=== PATIENT | male | born 1955 | race Caucasian/White ===

== ENCOUNTER 2016-10-03 12:51 | Inpatient (IN) | payer BC ==
[2016-10-03] MEDS ORDERED: NS 0.9% 1000 ML* 1,000 ML IV SCH ×2 (13:45→15:30)
[2016-10-03 14:11] LABS: Hematocrit 25 % (42-52); Hemoglobin 9.3 g/dl (14.0-18.0); Mean Corpuscular HGB Conc 37 g/dl (31-36); Mean Corpuscular Hemoglobin 40 pg (27-31); Mean Corpuscular Volume 109 fL (80-94); Red Blood Count 2.33 10^6/ul (4.0-5.4); Red Cell Distribution Width 15 % (10.5-15); White Blood Count 11.5 10^3/ul (3.5-10.8)
[2016-10-03 14:16] LABS: ALT 29 U/L (7-52); AST 68 U/L (13-39); Albumin 1.8 g/dL (3.2-5.2); Alkaline Phosphatase 128 U/L (34-104); BUN/Creatinine Ratio 20.5 (8-20); Blood Urea Nitrogen 23 mg/dL (6-24); C Reactive Protein 19.84 mg/L (< 5.00); CO2 Carbon Dioxide 26 mmol/L (22-32); Calcium 7.7 mg/dL (8.6-10.3); Chloride 87 mmol/L (101-111); Creatine Kinase 188 U/L (10-223); EGFR African American 85.7 (>60); EGFR Non-African American 66.7 (>60); Glucose 98 mg/dL (70-100); Lipase 46 U/L (11.0-82.0); Sodium 121 mmol/L (133-145); Total Protein 5.8 g/dL (6.4-8.9)
[2016-10-03 14:17] LABS: Troponin I 0.02 ng/mL (<0.04)
[2016-10-03 14:19] LABS: B Type Natriuretic Peptide 238 pg/mL
--- NOTE | 2016-10-03 14:22 | RAD ---
INDICATION: Weakness COMPARISON: July 31, 2012 TECHNIQUE: An AP portable view obtained at 1408 hours is submitted. FINDINGS: Bones/Soft Tissues: There are no acute bony findings. Cardiomediastinal: The cardiomediastinal silhouette is normal. Lungs: There is an infiltrate in the left lung base. The remaining lung fox are clear. Pleura: There are no pleural effusions. Other: None IMPRESSION: LEFT BASILAR INFILTRATE. SUGGEST FOLLOW-UP.
--- NOTE | 2016-10-03 14:25 | RAD ---
INDICATION: Right hip pain COMPARISON: April 12, 2005 TECHNIQUE: An AP view of the pelvis and AP views of the hip in neutral and abducted position were obtained FINDINGS: Bones: There are no acute bony findings. Joint spaces: There is mild to moderate osteoarthritis but the left hip. There is right hip arthroplasty. Both femoral and acetabular components appear well seated. SI joints/symphysis: The SI joints and symphysis are intact. Other: None IMPRESSION: RIGHT HIP ARTHROPLASTY. NO EVIDENCE OF HARDWARE FAILURE.
[2016-10-03 14:26] LABS: Add Diff/Slide Review? Slide Review Added; Comments Flag Yes
[2016-10-03 14:31] LABS: Magnesium 2.2 mg/dL (1.9-2.7)
[2016-10-03 14:50] LABS: Acetaminophen < 15 mcg/mL
[2016-10-03 14:56] LABS: Urine Bacteria Absent (Absent)
[2016-10-03] MEDS ORDERED: Azithromycin IV(*) 500 MG in NS 0.9% 250 ML* 250 ML IVPB ONE (15:38)
--- NOTE | 2016-10-03 17:01 | ED ---
Bg Bell SooYoung, scribed for Vaibhav Sahu MD on 10/03/16 at 1336 . Complex/Multi-Sys Presentation - HPI Summary HPI Summary: A 60 y/o M presents to ED with c/o weakness onset last night. Pt had a fall from standing last night and hurt his R hip. He was unable to get up this AM. He has not been eating or drinking much lately. Associated sx: dehydration. Denies LE pain. Took one tylenol with codeine this AM at 0530. He did not take his Lactulose today, but did take it yesterday. Pert PMHx: cirrhosis, total R hip replacement. Pt was scheduled for blood work this AM, but was unable to do. Sees Tiki Rhoades. - History Of Current Complaint Chief Complaint: EDGeneral Time Seen by Provider: 10/03/16 13:28 Hx Obtained From: Patient, Family/[employer] Onset/Duration: Still Present Timing: Constant Associated Signs And Symptoms: Positive: Weakness, Other - pos: dehydration, R hip pain - Allergies/Home Medications Allergies/Adverse Reactions: Allergies Allergy/AdvReac Type Severity Reaction Status Date / Time No Known Allergies Allergy Verified 06/06/14 09:21 Home Medications: Home Medications Acetaminop/Codeine 30 MG TAB* [Tylenol/Codeine 30 MG TAB*] 1 tab PO Q8H PRN [History Confirmed 10/03/16] Folic Acid TAB* [Folvite TAB*] 1 mg PO DAILY 10/03/16 [History Confirmed ] Furosemide TAB* [Lasix TAB*] 40 mg PO DAILY 10/03/16 [History Confirmed 10/03/16 ] Lactulose* 15 ml PO TID 10/03/16 [History Confirmed 10/03/16] RiFAXimin* [Xifaxan*] 550 mg PO BID 10/03/16 [History Confirmed 10/03/16] Sertraline* [Zoloft*] 50 mg PO DAILY 10/03/16 [History Confirmed 10/03/16] Spironolactone (NF) [Spironolactone 50 MG (NF)] 50 mg PO BID 10/03/16 [History Confirmed 10/03/16] PMH/Surg Hx/FS Hx/Imm Hx Previously Healthy: No Endocrine/Hematology History: Denies: Hx Sickle Cell Disease Cardiovascular History: Reports: Other Cardiovascular Problems/Disorders - BILAT VARICOSE VEINS Respiratory History: Denies: Other Respiratory Problems/Disorders GI History: Denies: Other GI Disorders Musculoskeletal History: Reports: Hx Arthritis - LOWER BACK/HIPS/HANDS Sensory History: Reports: Hx Contacts or Glasses - CONTACTS-ADVISED TO NOT WEAR Denies: Hx Hearing Aid Opthamlomology History: Reports: Hx Contacts or Glasses - CONTACTS-ADVISED TO NOT WEAR - Surgical History Surgery Procedure, Year, and Place: RIGHT TOTAL HIP-[facility]-2007. RIGHT INGUINAL HERNIA- [facility]. UMBILICAL HERNIA-2012 [facility]. 02/07/2014 RIGHT LEG VEINS [facility] Hx Anesthesia Reactions: No Infectious Disease History: Yes Infectious Disease History: Denies: Traveled Outside the [place] in Last 30 Days - Family History Known Family History: Positive: Other - neg: family anaesthesia reaction - Social History Occupation: Retired Lives: With Family Alcohol Use: Weekly Alcohol Amount: 4-5 DRINKS A WEEK Hx Substance Use: No Substance Use Type: Reports: None Hx Tobacco Use: No Smoking Status (MU): Never Smoked Tobacco Have You Smoked in the Last Year: No Review of Systems Positive: Other - pos: dehydration Positive: Arthralgia - R hip pain, Other - neg: LE pain Positive: Weakness All Other Systems Reviewed And Are Negative: Yes Physical Exam - Summary Physical Exam Summary: Jennifer: well-appearing, no pain distress Skin: warm, dry, JAUNDICED Head/Face: nml head/face inspection Eyes: EOMI, RENE, SCLERA ICTERUS ENT: ORAL MUCOSA DRY Neck: supple, non-tender Resp: CTA, breath sounds present Cardio: RRR Abd: nontender, soft, MILDLY DISTENDED Bowel: present Musc: TENDER AT R HIP, PEDAL EDEMA, GOOD PEDAL PULSES BILAT Neuro: nml, sensory/motor intact, A&O x 3 Psych: affect/mood appropriate Triage Information Reviewed: Yes Vital Signs On Initial Exam: Initial Vitals Temp Pulse Resp BP Pulse Ox 97.7 F 61 20 98/57 95 10/03/16 13:16 10/03/16 13:16 10/03/16 13:16 10/03/16 13:16 10/03/16 13:16 Vital Signs Reviewed: Yes Diagnostics - Vital Signs Vital Signs Temp Pulse Resp BP Pulse Ox 10/03/16 13:16 97.7 F 61 20 98/57 95 - Laboratory Lab Results: Lab Results 10/03/16 10/03/16 10/03/16 Range/Units 13:44 13:44 13:44 WBC 11.5 H (3.5-10.8) 10^3/ul RBC 2.33 L (4.0-5.4) 10^6/ul Hgb 9.3 L (14.0-18.0) g/dl Hct 25 L (42-52) % MCV 109 H (80-94) fL MCH 40 H (27-31) pg MCHC 37 H (31-36) g/dl RDW 15 (10.5-15) % Plt Count 103 L (150-450) 10^3/ul MPV Not Reportable Neut % (Auto) 76.6 (38-83) % Lymph % (Auto) 11.8 L (25-47) % [place] % (Auto) 10.5 H (1-9) % Eos % (Auto) 0.7 (0-6) % Baso % (Auto) 0.4 (0-2) % Absolute Neuts (auto) 8.8 H (1.5-7.7) 10^3/ul Absolute Lymphs (auto) 1.4 (1.0-4.8) 10^3/ul Absolute Monos (auto) 1.2 H (0-0.8) 10^3/ul Absolute Eos (auto) 0.1 (0-0.6) 10^3/ul Absolute Basos (auto) 0 (0-0.2) 10^3/ul Absolute Nucleated RBC 0.01 10^3/ul Nucleated RBC % 0.1 INR (Anticoag Therapy) 2.78 H (0.89-1.11) APTT 55.6 H (26.0-36.3) seconds Sodium 121 L (133-145) mmol/L Potassium TNP Chloride 87 L (101-111) mmol/L Carbon Dioxide 26 (22-32) mmol/L Anion Gap TNP BUN 23 (6-24) mg/dL Creatinine 1.12 (0.67-1.17) mg/dL Est GFR ( Amer) 85.7 (>60) Est GFR (Non-Af Amer) 66.7 (>60) BUN/Creatinine Ratio 20.5 H (8-20) Glucose 98 (70-100) mg/dL Lactic Acid (0.5-2.0) mmol/L Calcium 7.7 L (8.6-10.3) mg/dL Magnesium 2.2 (1.9-2.7) mg/dL Total Bilirubin TNP AST 68 H (13-39) U/L ALT 29 (7-52) U/L Alkaline Phosphatase 128 H (34-104) U/L Ammonia Total Creatine Kinase 188 (10-223) U/L CK-MB (CK-2) 3.8 (0.6-6.3) ng/mL Troponin I 0.02 (<0.04) ng/mL C-Reactive Protein 19.84 H (< 5.00) mg/L B-Natriuretic Peptide ( - 100) pg/mL Total Protein 5.8 L (6.4-8.9) g/dL Albumin 1.8 L (3.2-5.2) g/dL Globulin 4.0 (2-4) g/dL Albumin/Globulin Ratio 0.5 L (1-3) Lipase 46 (11.0-82.0) U/L TSH 1.70 (0.34-5.60) mcIU/mL Urine Color Urine Appearance Urine pH (5-9) Ur Specific [place] (1.010-1.030) Urine Protein (Negative) Urine Ketones (Negative) Urine Blood (Negative) Urine Nitrate (Negative) Urine Bilirubin (Negative) Urine Urobilinogen (Negative) Ur Leukocyte Esterase (Negative) Urine WBC (Auto) (Absent) Urine RBC (Auto) (Absent) Ur Squamous Epith Cells (Absent) Urine Bacteria (Absent) Hyaline Casts (Absent) Urine Glucose (Negative) Urine Ascorbic Acid (Negative) Acetaminophen < 15 mcg/mL 10/03/16 10/03/16 10/03/16 Range/Units 13:44 13:44 14:35 WBC (3.5-10.8) 10^3/ul RBC (4.0-5.4) 10^6/ul Hgb (14.0-18.0) g/dl Hct (42-52) % MCV (80-94) fL MCH (27-31) pg MCHC (31-36) g/dl RDW (10.5-15) % Plt Count (150-450) 10^3/ul MPV Neut % (Auto) (38-83) % Lymph % (Auto) (25-47) % [place] % (Auto) (1-9) % Eos % (Auto) (0-6) % Baso % (Auto) (0-2) % Absolute Neuts (auto) (1.5-7.7) 10^3/ul Absolute Lymphs (auto) (1.0-4.8) 10^3/ul Absolute Monos (auto) (0-0.8) 10^3/ul Absolute Eos (auto) (0-0.6) 10^3/ul Absolute Basos (auto) (0-0.2) 10^3/ul Absolute Nucleated RBC 10^3/ul Nucleated RBC % INR (Anticoag Therapy) (0.89-1.11) APTT (26.0-36.3) seconds Sodium (133-145) mmol/L Potassium Chloride (101-111) mmol/L Carbon Dioxide (22-32) mmol/L Anion Gap BUN (6-24) mg/dL Creatinine (0.67-1.17) mg/dL Est GFR ( Amer) (>60) Est GFR (Non-Af Amer) (>60) BUN/Creatinine Ratio (8-20) Glucose (70-100) mg/dL Lactic Acid 2.1 H* (0.5-2.0) mmol/L Calcium (8.6-10.3) mg/dL Magnesium (1.9-2.7) mg/dL Total Bilirubin AST (13-39) U/L ALT (7-52) U/L Alkaline Phosphatase (34-104) U/L Ammonia TNP Total Creatine Kinase (10-223) U/L CK-MB (CK-2) (0.6-6.3) ng/mL Troponin I (<0.04) ng/mL C-Reactive Protein (< 5.00) mg/L B-Natriuretic Peptide 238 H ( - 100) pg/mL Total Protein (6.4-8.9) g/dL Albumin (3.2-5.2) g/dL Globulin (2-4) g/dL Albumin/Globulin Ratio (1-3) Lipase (11.0-82.0) U/L TSH (0.34-5.60) mcIU/mL Urine Color [place] Urine Appearance Cloudy Urine pH (5-9) Ur Specific [place] 1.017 (1.010-1.030) Urine Protein (Negative) Urine Ketones (Negative) Urine Blood (Negative) Urine Nitrate (Negative) Urine Bilirubin (Negative) Urine Urobilinogen (Negative) Ur Leukocyte Esterase (Negative) Urine WBC (Auto) 1+(6-10/hpf) H (Absent) Urine RBC (Auto) Absent (Absent) Ur Squamous Epith Cells Present H (Absent) Urine Bacteria Absent (Absent) Hyaline Casts Present H (Absent) Urine Glucose (Negative) Urine Ascorbic Acid (Negative) Acetaminophen mcg/mL Result Diagrams: 10/03/16 13:44 10/03/16 13:44 Lab Statement: Any lab studies that have been ordered have been reviewed, and results considered in the medical decision making process. - Radiology H/P XR Xray Interpretation: No Acute Changes - IMPRESSION: R HIP ARTHROPLASTY. NO EVIDENCE OF HARDWARE FAILURE. Radiology Interpretation Completed By: Radiologist CXR Xray Interpretation: Positive (See Comments) - IMPRESSION: L BASILAR INFILTRATE. SUGGEST FOLLOW-UP. Radiology Interpretation Completed By: Radiologist - EKG 1 EKG Rhythm: Sinus Bradycardia Ectopy: None EKG Interpretation: Nonspecific intraventricular conduction delay Complex Multi-Symp Course/Dx Assessment/Plan: ADMIT HOSPITALIST STABLE. - Diagnoses Provider Diagnoses: Weakness, Pneumonia, Cirrhosis - Physician Notifications Discussed Care Of Patient With: edgar Encarnacionist Time Discussed With Above Provider: 14:27 Instructed by Provider To: Admit As Inpatient Discharge - Discharge Plan Condition: Stable Disposition: ADMITTED TO [facility] The documentation as recorded by the Bg leonard SooYoung accurately reflects the service I personally performed and the decisions made by me, Vaibhav Sahu MD.
[2016-10-03 17:07] LABS: Albumin 1.7 g/dL (3.2-5.2); Globulin 4.1 g/dL (2-4); Total Protein 5.8 g/dL (6.4-8.9)
[2016-10-03 17:09] LABS: Total Bilirubin 24.3 mg/dL (0.2-1.0)
[2016-10-03] MEDS ORDERED: Potassium Chlor TAB* 20 MEQ TAB.ER PO ONE (17:17)
[2016-10-03] MEDS: cefTRIAXone VIAL(*) 1,000 MG in NS 0.9% 50 ML* 50 ML IVPB SCH (17:21)
[2016-10-03 17:25] LABS: Direct Bilirubin 14.8 mg/dL (0.03-0.18); Indirect Bilirubin 9.5 mg/dL (0.3-1.0)
[2016-10-03] MEDS: KCL 20 MEQ/100 ML IVPREMIX* 20 MEQ/100 ML BAG IV SCH ×2 (17:42→20:01)
[2016-10-03 18:45] LABS: Prealbumin 4 mg/dL (18-38)
--- NOTE | 2016-10-03 20:41 | HP ---
ADMISSION HISTORY AND PHYSICAL: DATE OF ADMISSION: 10/03/16 PRIMARY CARE PROVIDER: Dr. Barrios in [place]. MEDICAL SALES CONSULTANT: Dr. An in [place]. HEALTHCARE PROXY: His . CODE STATUS: Full. CHIEF COMPLAINT: Fall. SOURCE OF INFORMATION: History obtained from interview with the patient and his . RELIABILITY: Fair. HISTORY OF PRESENT ILLNESS: This is a 60-year-old man with past medical history of alcoholic liver cirrhosis diagnosed about one and a half years prior. He has been in his usual state of health until approximately 3 to 4 weeks prior, started developing increasing weakness and fatigue. His notes over the last 10 days, he has been increasingly jaundiced. The patient was home alone today, felt like he wants to take a nap, got up out of his chair to walk to the bathroom, had sudden loss of consciousness without associated chest pain, shortness of breath, nausea, vomiting, lightheadedness or palpitations. He had no preceding orthopnea or PND for the preceding days or weeks. He has had no recent fevers, chills, night sweats. He woke up on the floor from an unknown duration of time and dragged himself to the bedroom and got into bed. He relayed events of his loss of consciousness to his upon her return home and she convinced the patient to proceed to the emergency room. He is unclear if he had an head strike, although his right hip had pain. PAST MEDICAL HISTORY: Includes alcoholic liver cirrhosis secondary to profound alcohol intake. indicates that he was drinking up to two months prior. He had a right hip replacement in 2007. He had a hernia repair and radiofrequency closure of the great saphenous vein. Depression. HOME MEDICATIONS: 1. Spironolactone 50 mg twice daily. 2. Zoloft 50 mg daily. 3. Rifaximin 550 mg twice daily. 4. Lactose 15 mg 3 times daily. 5. Lasix 40 mg daily. 6. Folic acid 1 mg daily. 7. Acetaminophen with codeine 30 mg 3 times a day as needed for pain. ALLERGIES: No known drug allergies. FAMILY HISTORY: Mother with hypertension, diabetes. SOCIAL HISTORY: Alcohol abuse up to two months prior. No history of tobacco or illicits. 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 REVIEW OF SYSTEMS: Increasing fatigue, increasing jaundice, syncope, right hip pain after fall. Also decreasing p.o. intake, mostly eats popsicles and may be a super apple during the day. PHYSICAL EXAMINATION GENERAL: Sitting 48 degrees in bed, in no apparent distress. VITAL SIGNS: In the emergency room when seen by this author 105/55, heart rate 61, respiratory rate 18, 95% on room air, T-max in the emergency room 97.7. HEENT: Oropharynx is jaundiced, otherwise clear. Moist mucous membranes. Sclerae are icteric. NECK: Non-elevated JVD. No lymphadenopathy. LUNGS: Clear to auscultation. HEART: He has regular rate and rhythm. No murmurs, rubs or gallop. ABDOMEN: Soft, nondistended. No palpable ascites, shifting dullness. EXTREMITIES: Warm and well perfused. There is 1+ lower extremity edema. SKIN: Diffusely jaundiced. Palmar erythema as well as spider angiomata on his chest. NEUROLOGIC: He is alert and oriented x3. Cranial nerves II through XII intact. No apparent agitation, anxiety, or depression. LABORATORY DATA/DIAGNOSTIC STUDIES: Data reviewed, notable for sodium 121, chloride 87, BUN 23, creatinine 1.12. Glucose of 98. AST 68, ALT 29. Ammonia test was not performed nor was total bilirubin which had been recollected. BNP 238, albumin is 1.8, INR is 2.78. White blood cell count 11.5, hemoglobin 9.3 with an MCV of 109, platelets 103. He has a normal acetaminophen level. Data reviewed. Chest x-ray, impression: Left basilar infiltrate, suggest followup. X-ray hip and pelvis, impression: Right hip arthroplasty. No evidence of hardware failure. ASSESSMENT AND PLAN: This 60-year-old man with history of advanced cirrhosis presenting with increasing fatigue over the last 3 to 4 weeks with worsening jaundice over 10 days now, _presenting with____ syncope. Syncope. Found with evidence of pneumonia on chest x-ray, although no pulmonary symptoms. Will treat with ceftriaxone, azithromycin, especially given leukocytosis. Additional contributing factors may be advancing liver failure, also medication effect in the setting of continued lactulose, spironolactone and Lasix. The patient will benefit from observational stay to monitor blood pressure, adjust medications and initiate antibiotic therapy. We will continue normal saline at 100 cc per hour for 2 additional liters. Macrocystic anemia just in the setting of continued alcohol abuse up to 2 months prior as well as poor p.o. intake. Check B12 and folate. Liver failure. No encephalopathy. Repeat labs tomorrow. Hyponatremia in the setting of above. Normal saline 2 L as indicated above. Severe protein, calorie malnutrition in the setting of decreased intake as well as poor liver function. Chest prealbumin in the morning. DVT prophylaxis, heparin subcu. [id number]/[facility] #: [id number] MTDD
[2016-10-03] MEDS: Lactulose* 15 ML UDC PO SCH (21:42)
[2016-10-03] MEDS: Spironolactone TAB* 25 MG PO SCH (21:43)
[2016-10-03] MEDS: Heparin VIAL(*) 5000 UNITS/ML VIAL (FIVE THOUSAND) SUBCUT SCH (21:43)
[2016-10-03] MEDS: RiFAXimin* 550 MG TAB PO SCH (21:43)
[2016-10-04] MEDS: KCL 20 MEQ/100 ML IVPREMIX* 20 MEQ/100 ML BAG IV SCH (01:00)
[2016-10-04] MEDS: Heparin VIAL(*) 5000 UNITS/ML VIAL (FIVE THOUSAND) SUBCUT SCH ×3 (05:43→21:36)
[2016-10-04 06:07] LABS: Hematocrit 23 % (42-52); Hemoglobin 8.5 g/dl (14.0-18.0); Mean Corpuscular HGB Conc 36 g/dl (31-36); Mean Corpuscular Hemoglobin 40 pg (27-31); Red Blood Count 2.13 10^6/ul (4.0-5.4); Red Cell Distribution Width 15 % (10.5-15); White Blood Count 14.2 10^3/ul (3.5-10.8)
[2016-10-04 06:13] LABS: Comments Flag Yes
[2016-10-04 06:14] LABS: Add Diff/Slide Review? Slide Review Added; Mean Corpuscular Volume 109 fL (80-94)
[2016-10-04 06:28] LABS: ALT 30 U/L (7-52); AST 65 U/L (13-39); Albumin 1.7 g/dL (3.2-5.2); Alkaline Phosphatase 128 U/L (34-104); Anion Gap 4 mmol/L (2-11); BUN/Creatinine Ratio 21.3 (8-20); Blood Urea Nitrogen 23 mg/dL (6-24); CO2 Carbon Dioxide 26 mmol/L (22-32); Calcium 7.6 mg/dL (8.6-10.3); Chloride 92 mmol/L (101-111); EGFR African American 89.4 (>60); EGFR Non-African American 69.5 (>60); Globulin 4.1 g/dL (2-4); Glucose 104 mg/dL (70-100); Sodium 122 mmol/L (133-145); Total Protein 5.8 g/dL (6.4-8.9)
[2016-10-04 07:00] LABS: Vitamin B12 > 1450 pg/mL (180-914)
[2016-10-04 07:01] LABS: Folate 15.16 ng/mL (>3.99)
[2016-10-04] MEDS: Furosemide TAB* 40 MG PO SCH (11:04)
[2016-10-04] MEDS: Lactulose* 15 ML UDC PO SCH ×4 (11:04→21:45)
[2016-10-04] MEDS: Folic Acid TAB* 1 MG PO SCH (11:05)
[2016-10-04] MEDS: RiFAXimin* 550 MG TAB PO SCH ×2 (11:05→21:10)
[2016-10-04] MEDS: Sertraline* 50 MG TAB PO SCH (11:05)
[2016-10-04] MEDS: Spironolactone TAB* 25 MG PO SCH ×2 (11:05→21:10)
[2016-10-04] MEDS: cefTRIAXone VIAL(*) 1,000 MG in NS 0.9% 50 ML* 50 ML IVPB SCH (16:43)
--- NOTE | 2016-10-04 17:02 | PN ---
Subjective Date of Service: 10/04/16 Interval History: Patient seen and examined at bedside. Pt is resting in the bed and will answer questions, but family is answering most of the questions. Pt has not been moving his bowels. Pt reports that he takes his medications as directed at home. Denies fever, chills, shortness of breath, chest discomfort, N/V/D. Pt has been urinating dark colored urine. Pt attempted to ambulate with Physical Therapy earlier today and was very weak. Family History: Unchanged from Admission Social History: Unchanged from Admission Past Medical History: Unchanged from Admission Objective Active Medications: Folic Acid (Folvite Tab*) 1 mg PO DAILY JULIA Furosemide (Lasix Tab*) 40 mg PO DAILY JULIA Heparin Sodium (Porcine) (Heparin Vial(*)) 5,000 units SUBCUT Q8HR JULIA Ceftriaxone Sodium 1,000 mg/ (Sodium Chloride) 50 mls @ 200 mls/hr IVPB Q24H JULIA Azithromycin 250 mg/ Sodium (Chloride) 250 mls @ 250 mls/hr IVPB Q24H JULIA Lactulose (Lactulose*) 15 ml PO TID JULIA Rifaximin (Xifaxan*) 550 mg PO BID [facility] Sertraline HCl (Zoloft*) 50 mg PO DAILY [facility] Spironolactone (Aldactone Tab*) 50 mg PO BID [facility] Vital Signs 10/04/16 16:24 Temperature 97.3 F Pulse Rate 73 Respiratory 18 Rate Blood Pressure 101/48 (mmHg) O2 Sat by Pulse 100 Oximetry Oxygen Devices in Use Now: None Appearance: NAD, laying in bed Eyes: PERRLA, - - Bilateral scleral icterus Ears/Nose/Mouth/Throat: NL Teeth, Lips, Gums, - - Lips are slighlty dry Neck: NL Appearance and Movements; NL JVP, Trachea Midline Respiratory: Symmetrical Chest Expansion and Respiratory Effort, Clear to Auscultation - , diminished Cardiovascular: NL Sounds; No Murmurs; No JVD, RRR Abdominal: NL Sounds; No Tenderness; No Distention Extremities: - - Trace bilateral LE edema Skin: - - Jaundice Neurological: Alert and Oriented x 3 - , slowed mentation, NL Muscle Strength and Tone Lines/Tubes/Other Access: Clean, Dry and Intact Peripheral IV - site benign Nutrition: Taking PO's Result Diagrams: 10/04/16 05:35 10/04/16 16:40 Additional Lab and Data: Assess/Plan/Problems-Billing Assessment: Mr. Hernandez is a 60 yo male with PMH significant for alcoholic liver cirrhosis who has developed increased jaundice over that past 10 days. The patient had a syncopal episode at home and was brought to the emergency room for further evaluation, where he was found to have hyponatremia, liver failure, anemia, and pneumonia. - Patient Problems (1) Pneumonia Code(s): J18.9 - PNEUMONIA, UNSPECIFIED ORGANISM SNOMED Code(s): 828670450 Comment: - Evidence of PNA on chest xray - No pulmonary symptoms - Leukocytosis, afebrile - Continue ceftriaxone and azithromycin (2) Syncope Code(s): R55 - SYNCOPE AND COLLAPSE SNOMED Code(s): 544808564 Comment: - Suspect r/t possible PNA and/or liver failure - Received 2 liters of IVF (3) Liver failure Comment: - Pt with mild confusion - Ammonia 78 - Pt is not having bowel movements - Increase Latulose to 30 ml TID (home dose is 15 ml) - Recheck labs in the AM and get records from PCP and Outpatient GI (4) Macrocytic anemia Code(s): D53.9 - NUTRITIONAL ANEMIA, UNSPECIFIED SNOMED Code(s): 56910584 Comment: - Suspect secondary to alcohol abuse and poor oral intake (5) Hyponatremia Code(s): E87.1 - HYPO-OSMOLALITY AND HYPONATREMIA SNOMED Code(s): 13435187 Comment: - No improvement with NS - Will check serum OSM, urine OSM and sodium (6) DVT prophylaxis Code(s): JWR3788 - SNOMED Code(s): 510211419 Comment: - SQ heparin for now - Trend INR (7) Full code status Code(s): Z78.9 - OTHER SPECIFIED HEALTH STATUS SNOMED Code(s): 061725884 Status and Disposition: OBV to Inpatient. Discharge to home when medically stable.
[2016-10-04 17:13] LABS: BUN/Creatinine Ratio 20.4 (8-20); Calcium 7.7 mg/dL (8.6-10.3); EGFR African American 84.8 (>60); Potassium 3.1 mmol/L (3.5-5.0)
[2016-10-04] MEDS ORDERED: KCL 20 MEQ/100 ML IVPREMIX* 20 MEQ/100 ML BAG IV ONE (17:20)
[2016-10-04] MEDS: Potassium Chlor TAB* 20 MEQ TAB.ER PO ONE ×3 (17:44→21:46)
[2016-10-04] MEDS: oxyCODONE TAB* 5 MG TAB PO PRN (18:31)
[2016-10-04] MEDS: Azithromycin IV(*) 250 MG in NS 0.9% 250 ML* 250 ML IVPB SCH (21:05)
[2016-10-05] MEDS: Lactulose* 15 ML UDC PO SCH ×4 (01:00→22:17)
[2016-10-05] MEDS: Heparin VIAL(*) 5000 UNITS/ML VIAL (FIVE THOUSAND) SUBCUT SCH ×3 (05:40→22:17)
[2016-10-05 06:43] LABS: Hematocrit 24 % (42-52); Hemoglobin 8.7 g/dl (14.0-18.0); Mean Corpuscular HGB Conc 37 g/dl (31-36); Mean Corpuscular Hemoglobin 40 pg (27-31); Mean Corpuscular Volume 111 fL (80-94); Red Blood Count 2.16 10^6/ul (4.0-5.4); Red Cell Distribution Width 15 % (10.5-15); White Blood Count 15.5 10^3/ul (3.5-10.8)
[2016-10-05 06:44] LABS: Add Diff/Slide Review? Slide Review Added; Comments Flag Yes
[2016-10-05 06:45] LABS: Albumin 1.9 g/dL (3.2-5.2); BUN/Creatinine Ratio 19.8 (8-20); Calcium 7.9 mg/dL (8.6-10.3); EGFR African American 78.4 (>60); Globulin 4.2 g/dL (2-4); Total Protein 6.1 g/dL (6.4-8.9)
[2016-10-05 06:47] LABS: Total Bilirubin 26.4 mg/dL (0.2-1.0)
[2016-10-05] MEDS: Spironolactone TAB* 25 MG PO SCH ×2 (09:30→22:17)
[2016-10-05] MEDS: Folic Acid TAB* 1 MG PO SCH (09:30)
[2016-10-05] MEDS: Furosemide TAB* 40 MG PO SCH (09:31)
[2016-10-05] MEDS: RiFAXimin* 550 MG TAB PO SCH ×2 (09:31→22:17)
[2016-10-05] MEDS: Sertraline* 50 MG TAB PO SCH (09:31)
[2016-10-05] MEDS: cefTRIAXone VIAL(*) 1,000 MG in NS 0.9% 50 ML* 50 ML IVPB SCH ×2 (16:33→17:00)
[2016-10-05] MEDS: PROCHLORPERAZINE INJ 5 MG/ML 2 ML VIAL IV PRN (17:47)
[2016-10-05] MEDS: KCL 20 MEQ/100 ML IVPREMIX* 20 MEQ/100 ML BAG IV SCH ×2 (20:00→23:35)
--- NOTE | 2016-10-05 20:19 | PN ---
Subjective Date of Service: 10/05/16 Interval History: Patient seen and examined at bedside. Pt states that his mentation feels better today then it was yesterday. Pt reports only 1 BM so far today. Denies fever, shortness of breath, chest discomfort, V/D. Pt reports being cold, nausea and poor appetite. Pt denies any alcohol intake recently, with the exception of a beer about 3 weeks ago. Pt's notes that the jaundice, poor appetite and fatigue have developed over the last 2 weeks. Pt encouraged to eat small frequent amounts of food and to drink fluids as able. Pt would not be interested in a feeding tube. Pt offered Ensure and declined. Family History: Unchanged from Admission Social History: Unchanged from Admission Past Medical History: Unchanged from Admission Objective Active Medications: Folic Acid (Folvite Tab*) 1 mg PO DAILY JULIA Furosemide (Lasix Tab*) 40 mg PO DAILY JULIA Heparin Sodium (Porcine) (Heparin Vial(*)) 5,000 units SUBCUT Q8HR JULIA Ceftriaxone Sodium 1,000 mg/ (Sodium Chloride) 50 mls @ 200 mls/hr IVPB Q24H JULIA Azithromycin 250 mg/ Sodium (Chloride) 250 mls @ 250 mls/hr IVPB Q24H JULIA Potassium Chloride (Potassium Chloride 20 Meq/100 Ml Ivpremix*) 20 meq in 100 mls @ 50 mls/hr IV Q2H JULIA Stop: 10/06/16 00:59 Lactulose (Lactulose*) 30 ml PO TID JULIA Oxycodone HCl (Roxycodone Tab*) 5 mg PO Q6H PRN Reason: PAIN Prochlorperazine Edisylate (Compazine Inj*) 5 mg IV Q6H PRN Reason: NAUSEA/ VOMITING Rifaximin (Xifaxan*) 550 mg PO BID JULIA Sertraline HCl (Zoloft*) 50 mg PO DAILY JULIA Spironolactone (Aldactone Tab*) 50 mg PO BID [facility] Vital Signs 10/04/16 10/04/16 10/05/16 20:31 23:16 07:17 Temperature 97.7 F 96.4 F Pulse Rate 73 66 Respiratory 14 11 18 Rate Blood Pressure 121/58 101/56 (mmHg) O2 Sat by Pulse 92 94 Oximetry 10/05/16 10/05/16 10/05/16 08:00 08:30 15:40 Temperature 97.2 F 97.2 F Pulse Rate 62 Respiratory 14 Rate Blood Pressure 98/48 (mmHg) O2 Sat by Pulse 93 Oximetry 10/05/16 16:00 Temperature 97.2 F Pulse Rate 62 Respiratory 16 Rate Blood Pressure 98/48 (mmHg) O2 Sat by Pulse 93 Oximetry Oxygen Devices in Use Now: None Appearance: NAD, laying in bed Eyes: PERRLA, - - Bilateral Scleral Icterus Ears/Nose/Mouth/Throat: NL Teeth, Lips, Gums, Mucous Membranes Moist Neck: NL Appearance and Movements; NL JVP, Trachea Midline Respiratory: Symmetrical Chest Expansion and Respiratory Effort, - - Crackles in the left base Cardiovascular: NL Sounds; No Murmurs; No JVD, RRR Abdominal: NL Sounds; No Tenderness; No Distention, - - No fluid wave noted Extremities: - - Trace to 1+ bilateral LE edema. Skin: - - Jaundice Neurological: Alert and Oriented x 3, - - Generalized weakness Lines/Tubes/Other Access: Clean, Dry and Intact Peripheral IV - site benign Nutrition: Taking PO's - Pt not taking very much PO intake d/t nausea Result Diagrams: 10/05/16 05:28 10/05/16 05:28 Additional Lab and Data: Assess/Plan/Problems-Billing Assessment: Mr. Hernandez is a 60 yo male with PMH significant for alcoholic liver cirrhosis who has developed increased jaundice over that past 10 days. The patient had a syncopal episode at home and was brought to the emergency room for further evaluation, where he was found to have hyponatremia, liver failure, anemia, and pneumonia. - Patient Problems (1) Pneumonia Code(s): J18.9 - PNEUMONIA, UNSPECIFIED ORGANISM SNOMED Code(s): 945749554 Comment: - Evidence of PNA on chest xray - No pulmonary symptoms - Leukocytosis, afebrile - Continue ceftriaxone and azithromycin (2) Syncope Code(s): R55 - SYNCOPE AND COLLAPSE SNOMED Code(s): 048482134 Comment: - Suspect r/t possible PNA and/or liver failure - Received 2 liters of IVF (3) Liver failure Comment: - Confusion resolved today - Continue increased Latulose 30 ml TID (home dose is 15 ml) - Continue spironolactone, lasix, and Rifaximin - LFTs are up from last labs from May 2016 - Daily weights and strict I+Os - GI consult pending (4) Macrocytic anemia Code(s): D53.9 - NUTRITIONAL ANEMIA, UNSPECIFIED SNOMED Code(s): 67474466 Comment: - Suspect secondary to alcohol abuse and poor oral intake (5) Hyponatremia Code(s): E87.1 - HYPO-OSMOLALITY AND HYPONATREMIA SNOMED Code(s): 85453855 Comment: - No improvement with NS - Will check serum OSM, urine OSM and sodium (labs pending) - May consider fluid restriction if sodium continues to be low (6) Hypokalemia Code(s): E87.6 - HYPOKALEMIA SNOMED Code(s): 45550538 Comment: - Will give replacement today and recheck labs in the morning (7) DVT prophylaxis Code(s): PPE4806 - SNOMED Code(s): 672568236 Comment: - SQ heparin - Trend INR (8) Full code status Code(s): Z78.9 - OTHER SPECIFIED HEALTH STATUS SNOMED Code(s): 736315676 Status and Disposition: Inpatient. Discharge to home when medically stable. Suspect Pt will need RENÉ due to weakness.
[2016-10-05] MEDS: Azithromycin IV(*) 250 MG in NS 0.9% 250 ML* 250 ML IVPB SCH (22:05)
[2016-10-06] MEDS: KCL 20 MEQ/100 ML IVPREMIX* 20 MEQ/100 ML BAG IV SCH (02:14)
[2016-10-06] MEDS: Heparin VIAL(*) 5000 UNITS/ML VIAL (FIVE THOUSAND) SUBCUT SCH ×3 (05:55→22:36)
[2016-10-06 06:52] LABS: Hematocrit 23 % (42-52); Hemoglobin 8.1 g/dl (14.0-18.0); Mean Corpuscular HGB Conc 36 g/dl (31-36); Mean Corpuscular Hemoglobin 40 pg (27-31); Mean Corpuscular Volume 111 fL (80-94); Red Blood Count 2.03 10^6/ul (4.0-5.4); Red Cell Distribution Width 16 % (10.5-15); White Blood Count 14.2 10^3/ul (3.5-10.8)
[2016-10-06 06:53] LABS: Add Diff/Slide Review? Slide Review Added; Comments Flag Yes
[2016-10-06 06:58] LABS: Albumin 1.7 g/dL (3.2-5.2); BUN/Creatinine Ratio 19.5 (8-20); Calcium 7.8 mg/dL (8.6-10.3); EGFR African American 80.7 (>60); EGFR Non-African American 62.8 (>60); Globulin 3.7 g/dL (2-4); Potassium 3.3 mmol/L (3.5-5.0); Total Protein 5.4 g/dL (6.4-8.9)
[2016-10-06 07:03] LABS: Total Bilirubin 23.7 mg/dL (0.2-1.0)
[2016-10-06] MEDS: Folic Acid TAB* 1 MG PO SCH (09:47)
[2016-10-06] MEDS: RiFAXimin* 550 MG TAB PO SCH ×2 (09:47→22:36)
[2016-10-06] MEDS: Spironolactone TAB* 25 MG PO SCH ×2 (09:47→22:35)
[2016-10-06] MEDS: Furosemide TAB* 40 MG PO SCH (09:47)
[2016-10-06] MEDS: Sertraline* 50 MG TAB PO SCH (09:48)
[2016-10-06] MEDS: Lactulose* 15 ML UDC PO SCH (09:48)
[2016-10-06] MEDS: PROCHLORPERAZINE INJ 5 MG/ML 2 ML VIAL IV PRN (10:00)
--- NOTE | 2016-10-06 13:43 | PN ---
Subjective Date of Service: 10/06/16 Interval History: Pt is feeling poorly. He states he just wet himself 3 times. He has been sleepy all day. He denies any pain. Objective Active Medications: Folic Acid (Folvite Tab*) 1 mg PO DAILY [facility] Last Admin: 10/06/16 09:47 Dose: 1 mg Furosemide (Lasix Tab*) 40 mg PO DAILY [facility] Last Admin: 10/06/16 09:47 Dose: 40 mg Heparin Sodium (Porcine) (Heparin Vial(*)) 5,000 units SUBCUT Q8HR [facility] Last Admin: 10/06/16 05:55 Dose: 5,000 units Ceftriaxone Sodium 1,000 mg/ (Sodium Chloride) 50 mls @ 200 mls/hr IVPB Q24H [facility] Last Admin: 10/05/16 17:00 Dose: 200 mls/hr Azithromycin 250 mg/ Sodium (Chloride) 250 mls @ 250 mls/hr IVPB Q24H [facility] Last Admin: 10/05/16 22:05 Dose: 250 mls/hr Lactulose (Lactulose*) 30 ml PO TID [facility] Last Admin: 10/06/16 09:48 Dose: 30 ml Oxycodone HCl (Roxycodone Tab*) 5 mg PO Q6H PRN PRN Reason: PAIN Last Admin: 10/04/16 18:31 Dose: 5 mg Prochlorperazine Edisylate (Compazine Inj*) 5 mg IV Q6H PRN PRN Reason: NAUSEA/VOMITING Last Admin: 10/06/16 10:00 Dose: 5 mg Rifaximin (Xifaxan*) 550 mg PO BID [facility] Last Admin: 10/06/16 09:47 Dose: 550 mg Sertraline HCl (Zoloft*) 50 mg PO DAILY [facility] Last Admin: 10/06/16 09:48 Dose: 50 mg Spironolactone (Aldactone Tab*) 50 mg PO BID [facility] Last Admin: 10/06/16 09:47 Dose: 50 mg Vital Signs 10/05/16 10/05/16 10/05/16 15:40 16:00 20:00 Temperature 97.2 F 97.2 F Pulse Rate 62 62 Respiratory 16 13 Rate Blood Pressure 98/48 98/48 (mmHg) O2 Sat by Pulse 93 93 Oximetry 10/05/16 10/06/1617 23:24 07:44 08:00 Temperature 97.6 F Pulse Rate 72 71 Respiratory 13 18 18 Rate Blood Pressure 102/53 97/36 (mmHg) O2 Sat by Pulse 91 94 Oximetry Oxygen Devices in Use Now: None - 94% Appearance: Middle aged jaundiced male lying in bed, NAD Eyes: - - + icteric sclera Ears/Nose/Mouth/Throat: Mucous Membranes Moist Respiratory: Symmetrical Chest Expansion and Respiratory Effort, Clear to Auscultation Cardiovascular: RRR, - - III/ systolic murmur heard best RUSB, L LE with 1+ pitting edema, R LE trace pitting edema Abdominal: - - BS+ soft, mildly distended, mildly tender to deep palpation LLQ Extremities: No Clubbing, Cyanosis Skin: No Rash or Ulcers, No Nodules or Sclerosis Neurological: - - sleepy but answers questions Result Diagrams: 10/06/16 05:57 10/06/16 05:57 Additional Lab and Data: Assess/Plan/Problems-Billing Mr. Hernandez is a 60 yo male with PMHx significant for alcoholic liver cirrhosis who has developed increased jaundice over that past 10 days. The patient had a syncopal episode at home and was brought to the emergency room for further evaluation, where he was found to have hyponatremia, liver failure, anemia, and possible pneumonia. - Patient Problems (1) Liver failure Current Visit: Yes Status: Acute Comment: The patient's liver failure is decompensated. His MELD score is elevated at 30. He was reportedly drinking until a couple months prior to admission. It is unclear what caused the patient to decompensate. Pneumonia is a possibility however he is not behaving like he has pna. ? SBP-will check abd US to eval for degree of ascites to consider paracentesis as he has pain and leukocytosis. For now continue lactulose ( increase to QID as he has not been having frequent stools), rifaximin, lasix and spironolactone. Await GI recommendations. (2) Syncope Current Visit: Yes Status: Acute Code(s): R55 - SYNCOPE AND COLLAPSE SNOMED Code(s): 739363382 Comment: The patient presented to the ER with c/o syncope. No clear etiology has been identified. Once his mental status has improved and he does not feel so weak will try to get the patient up and ambulating. Monitor for other causes of syncope. (3) Pneumonia Current Visit: Yes Status: Acute Code(s): J18.9 - PNEUMONIA, UNSPECIFIED ORGANISM SNOMED Code(s): 328891636 Comment: On admission there was concern for pneumonia on CXR however the patient does not have symptoms that correspond to the infiltrate. He remains afebrile. Leukocytosis is about the same. Continue ceftriaxone for now but stop azithromycin. (4) Hyponatremia Current Visit: Yes Status: Acute Code(s): E87.1 - HYPO-OSMOLALITY AND HYPONATREMIA SNOMED Code(s): 17841056 Comment: Na has improved slowly over the last couple days. Serum osm and urine osm pending. I suspect his hyponatremia is secondary to his cirrhosis. Continue to monitor. (5) Hypokalemia Current Visit: Yes Status: Acute Code(s): E87.6 - HYPOKALEMIA SNOMED Code( s): 17378123 Comment: Continue to replace K as needed. ? loses secondary to diuretic use. (6) Macrocytic anemia Current Visit: Yes Status: Acute Code(s): D53.9 - NUTRITIONAL ANEMIA, UNSPECIFIED SNOMED Code(s): 51055728 Comment: H/H has been drifting down. Likely chronic anemia secondary to cirrhosis however with the drift down check stool guaiac. B12/folate in good range. Check iron studies. (7) DVT prophylaxis Current Visit: Yes Status: Acute Code(s): IPL8505 - SNOMED Code(s): 274367715 Comment: SQ heparin despite elevated INR secondary to liver failure, monitor INR (8) Full code status Current Visit: Yes Status: Acute Code(s): Z78.9 - OTHER SPECIFIED HEALTH STATUS SNOMED Code(s): 408228169 Status and Disposition: .
[2016-10-06 15:12] LABS: Ferritin 981.5 ng/mL (24-336)
--- NOTE | 2016-10-06 15:45 | RAD ---
Indication: Evaluate for ascites. Limited abdominal ultrasound demonstrates a mild to moderate amount of ascites noted. IMPRESSION: Mild to moderate amount of ascites is noted.
[2016-10-06] MEDS: cefTRIAXone VIAL(*) 1,000 MG in NS 0.9% 50 ML* 50 ML IVPB SCH (16:31)
--- NOTE | 2016-10-06 19:05 | CONS ---
GASTROENTEROLOGY CONSULT: DATE OF CONSULT : 10/06/16 CONSULTING PHYSICIAN: Lisa Spivey DO REASON FOR CONSULT: Jaundice and liver failure in a man who quit drinking around or shortly thereafter. 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 Alcoholic liver disease was diagnosed by his [place] assistant teacher a year and a half ago based on the history and a liver biopsy and compatible imaging including EUS at [facility]. He was placed on lactulose about a year and a half ago along with rifaximin, tonnes of diuretics. Throughout 2016, his bilirubin zig-zagged upwards. There are notes in the [place] outpatient chart regarding the lack of any binge alcohol intake to account for the rising bilirubin, though there is no statement that he was absolutely sober or how he interpreted a binge. He kept drinking through [place] and somewhere around or shortly thereafter, according to his voluntarily stopped buying rum. There was no crisis where all the hard liquor was taken out of the house. His works outside the home during conventional hours and cannot say for sure what takes place during that time. Over the end of August, early September, he was still somewhat active going to swim at an exercise facility. He was; however, more lackadaisical at home and was eating less and less, indeed hardly anything the 10 days prior to his admission. The admission was precipitated by a fall at home. There had been no fever or vomiting or diarrhea. PAST MEDICAL HISTORY: 1. Right total hip replacement. 2. Inguinal hernia repair. 3. Saphenous vein surgery, Dr. Elizabeth. 4. History of hypertension. 5. Alcoholism - per his , this is his first admission for alcoholic liver problems. No legal difficulties from alcohol and no rehab stays. REVIEW OF SYSTEMS: He had a colonoscopy here in 2005. His baseline weight while healthy had been 250. He has not had a history of seizures, CVA, TIA, GA , syncope, or valvular disease. He has not had any pathologic bleeding. PHYSICAL EXAM: He is a deeply jaundiced middle-aged man lying in bed, not spontaneously speaking but does participate in the conversation and will enunciate simple answers. He denies any pain anywhere. He is in no respiratory distress. His pulse is in the 70s, temperature 97.5, blood pressure 112/50. HEENT exam shows intense jaundice and somewhat dry mucous membranes. He has no adenopathy. Breath sounds are diminished but symmetric. Heart sounds are regular at 70. His abdomen is mildly rounded, symmetric, and soft with no obvious organomegaly. There is no umbilical protrusion. There is no tenderness. Extremities show 1 to 2+ edema. Neurologic shows him to be rather foggy mentally. He does not know the date. He does recognize his . DIAGNOSTIC STUDIES/LAB DATA: Ultrasound - [id number] ascites. Labs - today white count 14.2, hemoglobin 8.1, hematocrit 23, MCV 111, platelets 101. INR 2.53. BUN 23, creatinine 1.18, bilirubin 23.7. Ferritin 981, iron 110, TIBC 123, 89% saturation. Albumin 1.7, vitamin B12 greater than 1450. IMPRESSION: This 60-year-old man has end-stage alcoholic liver disease and he continued drinking for at least a year and a half after it was diagnosed based on substantial scarring that was manifested on imaging. Endoscopic ultrasound done in [place] had shown esophageal varices. He continued to drink and at this time shows the effects of fixed cirrhosis, some persisting alcoholic hepatitis and malnutrition. The synthetic failure is pronounced and it seemed doubtful that his situation is retrievable even though at this moment he is not bleeding or infected. Transplant is not an option with less than 2 months of sobriety and the circumstances are not favorable for prednisone or any other intervention as he has been clearly not drinking for presumably at least 3 weeks and possibly upwards of 6. This is based on the lack of intake, it was generally evident over those time frames, even though his could not observe him hour by hour. With Dr. Spivey, the situation was discussed with the patient's and their son from [place], [place]. Oral intake will be encouraged and electrolytes will be tracked and there is a very small chance that he might turn around, though the prognosis appears dim. [id number]/[facility] #: [id number] DEBBIE
[2016-10-07] MEDS: Heparin VIAL(*) 5000 UNITS/ML VIAL (FIVE THOUSAND) SUBCUT SCH ×3 (05:38→21:59)
[2016-10-07 05:42] LABS: Hematocrit 24 % (42-52); Hemoglobin 8.3 g/dl (14.0-18.0); Mean Corpuscular HGB Conc 35 g/dl (31-36); Mean Corpuscular Hemoglobin 39 pg (27-31); Mean Corpuscular Volume 112 fL (80-94); Red Blood Count 2.11 10^6/ul (4.0-5.4); Red Cell Distribution Width 16 % (10.5-15); White Blood Count 13.8 10^3/ul (3.5-10.8)
[2016-10-07 05:50] LABS: Comments Flag Yes
[2016-10-07 06:05] LABS: Albumin 1.7 g/dL (3.2-5.2); BUN/Creatinine Ratio 20.5 (8-20); Calcium 7.9 mg/dL (8.6-10.3); EGFR African American 77.7 (>60); EGFR Non-African American 60.4 (>60); Globulin 3.8 g/dL (2-4); Potassium 3.3 mmol/L (3.5-5.0); Total Protein 5.5 g/dL (6.4-8.9)
[2016-10-07 06:15] LABS: Total Bilirubin 23.2 mg/dL (0.2-1.0)
[2016-10-07] MEDS: RiFAXimin* 550 MG TAB PO SCH ×2 (09:20→21:59)
[2016-10-07] MEDS: Folic Acid TAB* 1 MG PO SCH (09:20)
[2016-10-07] MEDS: Spironolactone TAB* 25 MG PO SCH ×2 (09:20→21:59)
[2016-10-07] MEDS: Furosemide TAB* 40 MG PO SCH (09:20)
[2016-10-07] MEDS: Sertraline* 50 MG TAB PO SCH (09:21)
[2016-10-07] MEDS: PROCHLORPERAZINE INJ 5 MG/ML 2 ML VIAL IV PRN ×3 (10:27→22:16)
[2016-10-07] MEDS ORDERED: Potassium Chlor TAB* 20 MEQ TAB.ER PO ONE (12:51)
--- NOTE | 2016-10-07 13:02 | PN ---
Subjective Date of Service: 10/07/16 Interval History: Pt states he is not feeling too good. He c/o being tired and having a sensation of fullness in his abdomen. He has pain upon changing position in bed. He had only a smear BM today. Objective Active Medications: Folic Acid (Folvite Tab*) 1 mg PO DAILY [facility] Last Admin: 10/07/16 09:20 Dose: 1 mg Furosemide (Lasix Tab*) 40 mg PO DAILY [facility] Last Admin: 10/07/16 09:20 Dose: 40 mg Heparin Sodium (Porcine) (Heparin Vial(*)) 5,000 units SUBCUT Q8HR [facility] Last Admin: 10/07/16 05:38 Dose: 5,000 units Ceftriaxone Sodium 1,000 mg/ (Sodium Chloride) 50 mls @ 200 mls/hr IVPB Q24H [facility] Last Admin: 10/06/16 16:31 Dose: 200 mls/hr Lactulose (Lactulose*) 30 ml PO QID [facility] Last Admin: 10/07/16 09:20 Dose: 30 ml Oxycodone HCl (Roxycodone Tab*) 5 mg PO Q6H PRN PRN Reason: PAIN Last Admin: 10/04/16 18:31 Dose: 5 mg Prochlorperazine Edisylate (Compazine Inj*) 5 mg IV Q6H PRN PRN Reason: NAUSEA/VOMITING Last Admin: 10/07/16 10:27 Dose: 5 mg Rifaximin (Xifaxan*) 550 mg PO BID [facility] Last Admin: 10/07/16 09:20 Dose: 550 mg Sertraline HCl (Zoloft*) 50 mg PO DAILY [facility] Last Admin: 10/07/16 09:21 Dose: 50 mg Spironolactone (Aldactone Tab*) 50 mg PO BID [facility] Last Admin: 10/07/16 09:20 Dose: 50 mg Vital Signs 10/06/16 10/06/16 10/06/16 13:36 14:07 20:00 Temperature 97.5 F Pulse Rate 72 Respiratory 12 18 Rate Blood Pressure 112/50 (mmHg) O2 Sat by Pulse 91 Oximetry 10/06/16 10/06/16 10/06/16 20:09 23:30 23:49 Temperature 97.9 F 98.0 F Pulse Rate 73 74 Respiratory 18 11 16 Rate Blood Pressure 101/46 107/48 (mmHg) O2 Sat by Pulse 99 93 Oximetry 10/07/16 10/07/16 08:00 08:03 Temperature 97.5 F Pulse Rate 71 Respiratory 20 20 Rate Blood Pressure 99/46 (mmHg) O2 Sat by Pulse 94 Oximetry Oxygen Devices in Use Now: None Appearance: Middle aged jaundiced male lying in bed getting cleaned up, NAD Eyes: No Scleral Icterus Ears/Nose/Mouth/Throat: Mucous Membranes Moist Respiratory: Symmetrical Chest Expansion and Respiratory Effort, Clear to Auscultation Cardiovascular: RRR, No Edema, - - III/ systolic murmur heard best at the LUSB Abdominal: - - BS+ soft, tender to palpation, moderately distended Extremities: No Clubbing, Cyanosis Skin: No Rash or Ulcers, No Nodules or Sclerosis Neurological: - - sleepy, answers some questions Result Diagrams: 10/07/16 05:27 10/07/16 05:27 Additional Lab and Data: Assess/Plan/Problems-Billing Mr. Hernandez is a 60 yo male with PMHx significant for alcoholic liver cirrhosis who has developed increased jaundice over that past 10 days. The patient had a syncopal episode at home and was brought to the emergency room for further evaluation, where he was found to have hyponatremia, liver failure, anemia, and possible pneumonia. - Patient Problems (1) Liver failure Current Visit: Yes Status: Acute Comment: The patient has end stage liver failure that has decompensated. Dr. Emery saw the patient yesterday and does not feel that he has anything to offer and the patient's overal prognosis is very poor. Continue lactulose at increased dose/frequency (no response however) , rifaximin, lasix and spironolactone. His mental status has not improved and he is currently encephalopathic. Abd US showed mild-moderate amount of ascites. He has remained on ceftriaxone without any improvement in his MS or WBC count. Will continue the current regimen for now though I think palliative care is likely the most appropriate course if he fails to improve over the next couple days. Will discuss this with the patient's family again (Dr. Emery and I met with his and son to discuss his current status yesterday afternoon). (2) Syncope Current Visit: Yes Status: Acute Code(s): R55 - SYNCOPE AND COLLAPSE SNOMED Code(s): 043052321 Comment: In speaking with the patient's not completely clear that he had a syncopal episode but fell due to weakness. (3) Pneumonia Current Visit: Yes Status: Acute Code(s): J18.9 - PNEUMONIA, UNSPECIFIED ORGANISM SNOMED Code(s): 513275013 Comment: No clear pneumonia clinically. Continuing ceftriaxone as above but azithromycin has stopped. Monitor for symtoms c/w pna. (4) Hyponatremia Current Visit: Yes Status: Acute Code(s): E87.1 - HYPO-OSMOLALITY AND HYPONATREMIA SNOMED Code(s): 17213519 Comment: Na is improving slowly but I suspect it is from volume contraction as he is not eating/drinking much and he has been getting lasix. Will continue to monitor. (5) Hypokalemia Current Visit: Yes Status: Acute Code(s): E87.6 - HYPOKALEMIA SNOMED Code( s): 25157612 Comment: Continue to replace K as needed. ? loses secondary to diuretic use. (6) Macrocytic anemia Current Visit: Yes Status: Acute Code(s): D53.9 - NUTRITIONAL ANEMIA, UNSPECIFIED SNOMED Code(s): 67573105 Comment: H/H is stable. Continue to monitor. (7) DVT prophylaxis Current Visit: Yes Status: Acute Code(s): VUM0418 - SNOMED Code(s): 756074603 Comment: SQ heparin despite elevated INR secondary to liver failure, monitor INR (8) Full code status Current Visit: Yes Status: Acute Code(s): Z78.9 - OTHER SPECIFIED HEALTH STATUS SNOMED Code(s): 740879328 Status and Disposition: .
[2016-10-07] MEDS: cefTRIAXone VIAL(*) 1,000 MG in NS 0.9% 50 ML* 50 ML IVPB SCH (16:19)
[2016-10-07] MEDS: oxyCODONE TAB* 5 MG TAB PO PRN (22:16)
[2016-10-08] MEDS: Heparin VIAL(*) 5000 UNITS/ML VIAL (FIVE THOUSAND) SUBCUT SCH ×3 (05:41→22:39)
[2016-10-08] MEDS: Spironolactone TAB* 25 MG PO SCH ×2 (08:07→22:37)
[2016-10-08] MEDS: Sertraline* 50 MG TAB PO SCH (08:08)
[2016-10-08] MEDS: RiFAXimin* 550 MG TAB PO SCH ×2 (08:09→22:38)
[2016-10-08] MEDS: Folic Acid TAB* 1 MG PO SCH (08:09)
[2016-10-08] MEDS: Furosemide TAB* 40 MG PO SCH (08:09)
--- NOTE | 2016-10-08 15:49 | PN ---
Subjective Date of Service: 10/08/16 Interval History: Patient very tired today, has been talking to , but less responsive. Not taking POs. Now sleeping. Family History: Unchanged from Admission Social History: Unchanged from Admission Past Medical History: Unchanged from Admission Objective Active Medications: Folic Acid (Folvite Tab*) 1 mg PO DAILY [facility] Last Admin: 10/08/16 08:09 Dose: 1 mg Furosemide (Lasix Tab*) 40 mg PO DAILY [facility] Last Admin: 10/08/16 08:09 Dose: 40 mg Heparin Sodium (Porcine) (Heparin Vial(*)) 5,000 units SUBCUT Q8HR [facility] Last Admin: 10/08/16 13:31 Dose: 5,000 units Ceftriaxone Sodium 1,000 mg/ (Sodium Chloride) 50 mls @ 200 mls/hr IVPB Q24H [facility] Last Admin: 10/07/16 16:19 Dose: 200 mls/hr Oxycodone HCl (Roxycodone Tab*) 5 mg PO Q6H PRN PRN Reason: PAIN Last Admin: 10/07/16 22:16 Dose: 5 mg Prochlorperazine Edisylate (Compazine Inj*) 5 mg IV Q6H PRN PRN Reason: NAUSEA/VOMITING Last Admin: 10/07/16 22:16 Dose: 5 mg Rifaximin (Xifaxan*) 550 mg PO BID [facility] Last Admin: 10/08/16 08:09 Dose: 550 mg Sertraline HCl (Zoloft*) 50 mg PO DAILY [facility] Last Admin: 10/08/16 08:08 Dose: 50 mg Spironolactone (Aldactone Tab*) 50 mg PO BID [facility] Last Admin: 10/08/16 08:07 Dose: 50 mg Vital Signs 10/07/16 10/07/16 10/07/16 20:00 22:16 23:55 Temperature 36.6 C Pulse Rate 75 Respiratory 16 16 13 Rate Blood Pressure 111/51 (mmHg) O2 Sat by Pulse 94 Oximetry 10/08/16 10/08/16 10/08/16 00:16 07:15 07:24 Temperature 36.7 C Pulse Rate 74 Respiratory 13 16 Rate Blood Pressure 112/56 (mmHg) O2 Sat by Pulse 95 Oximetry Oxygen Devices in Use Now: None Appearance: no respiratory distress Lines/Tubes/Other Access: Clean, Dry and Intact Peripheral IV Result Diagrams: 10/07/16 05:27 10/07/16 05:27 Microbiology and Other Data: Microbiology 10/07/16 20:25 Stool Gross Appearance - Final Stool Stool Occult Blood (ERLINDA) - Final 10/07/16 18:00 Stool Occult Blood (ERLINDA) - Final Stool Assess/Plan/Problems-Billing Mr. Hernandez is a 60 yo male with PMHx significant for alcoholic liver cirrhosis who has developed increased jaundice over that past 10 days. The patient had a syncopal episode at home and was brought to the emergency room for further evaluation, where he was found to have hyponatremia, liver failure, anemia, and possible pneumonia. - Patient Problems (1) Liver failure Current Visit: Yes Status: Acute Priority: High Comment: -Discussed case with Dr. Emery, there are no reasonable treatment options. -Will pursue palliative approach. -diarrhea was bothering patient, embarassing. Lactulose stopped. -Since here a few more days will have palliative consult here. Status and Disposition: Will remain in hospital until he moves to inpatient hospice at [facility]
[2016-10-08] MEDS: cefTRIAXone VIAL(*) 1,000 MG in NS 0.9% 50 ML* 50 ML IVPB SCH (15:59)
[2016-10-08] MEDS: oxyCODONE TAB* 5 MG TAB PO PRN ×2 (15:59→22:38)
[2016-10-08] MEDS: Morphine INJ* 2 MG/ML 1 ML CARPUJECT IV PRN ×2 (18:22→22:33)
[2016-10-08] MEDS: PROCHLORPERAZINE INJ 5 MG/ML 2 ML VIAL IV PRN (22:35)
[2016-10-09] MEDS: Morphine INJ* 2 MG/ML 1 ML CARPUJECT IV PRN ×2 (04:32→09:51)
[2016-10-09] MEDS: Heparin VIAL(*) 5000 UNITS/ML VIAL (FIVE THOUSAND) SUBCUT SCH ×3 (05:13→20:11)
[2016-10-09] MEDS: Lactulose* 15 ML UDC PO SCH ×3 (07:15→20:08)
[2016-10-09] MEDS: Furosemide TAB* 40 MG PO SCH (08:19)
[2016-10-09] MEDS: RiFAXimin* 550 MG TAB PO SCH ×2 (08:19→20:11)
[2016-10-09] MEDS: Folic Acid TAB* 1 MG PO SCH (08:19)
[2016-10-09] MEDS: Sertraline* 50 MG TAB PO SCH (08:19)
[2016-10-09] MEDS: Spironolactone TAB* 25 MG PO SCH ×2 (08:19→20:08)
--- NOTE | 2016-10-09 09:37 | PN ---
Subjective Date of Service: 10/09/16 Interval History: Patient very uncomfortable w/ RT hip pain. BP and RR have been low. Has not had pain medication since 4AM. Patient would rather have pain relieved than worry about extending life. is understanding of this, and in agreement. Not eating, had a bit of juice Family History: Unchanged from Admission Social History: Unchanged from Admission Past Medical History: Unchanged from Admission Objective Active Medications: Folic Acid (Folvite Tab*) 1 mg PO DAILY [facility] Last Admin: 10/09/16 08:19 Dose: 1 mg Furosemide (Lasix Tab*) 40 mg PO DAILY [facility] Last Admin: 10/09/16 08:19 Dose: 40 mg Heparin Sodium (Porcine) (Heparin Vial(*)) 5,000 units SUBCUT Q8HR [facility] Last Admin: 10/09/16 05:13 Dose: 5,000 units Ceftriaxone Sodium 1,000 mg/ (Sodium Chloride) 50 mls @ 200 mls/hr IVPB Q24H [facility] Last Admin: 10/08/16 15:59 Dose: 200 mls/hr Lactulose (Lactulose*) 15 ml PO TID [facility] Last Admin: 10/09/16 07:15 Dose: 15 ml Morphine Sulfate (Morphine Inj (Syringe)*) 2 mg IV Q2H PRN PRN Reason: PAIN Last Admin: 10/09/16 04:32 Dose: 2 mg Oxycodone HCl (Roxycodone Tab*) 5 mg PO Q6H PRN PRN Reason: PAIN Last Admin: 10/08/16 22:38 Dose: 5 mg Prochlorperazine Edisylate (Compazine Inj*) 5 mg IV Q6H PRN PRN Reason: NAUSEA/VOMITING Last Admin: 10/08/16 22:35 Dose: 5 mg Rifaximin (Xifaxan*) 550 mg PO BID [facility] Last Admin: 10/09/16 08:19 Dose: 550 mg Sertraline HCl (Zoloft*) 50 mg PO DAILY [facility] Last Admin: 10/09/16 08:19 Dose: 50 mg Spironolactone (Aldactone Tab*) 50 mg PO BID [facility] Last Admin: 10/09/16 08:19 Dose: 50 mg Vital Signs 10/09/16 10/09/16 10/09/16 05:32 07:14 08:22 Temperature Pulse Rate 75 Respiratory 12 14 Rate Blood Pressure 96/47 105/58 (mmHg) O2 Sat by Pulse 94 Oximetry 10/09/16 10/09/16 08:40 08:59 Temperature 36.6 C Pulse Rate Respiratory 8 Rate Blood Pressure (mmHg) O2 Sat by Pulse Oximetry Oxygen Devices in Use Now: None Eyes: - - icteric Ears/Nose/Mouth/Throat: Clear Oropharnyx Respiratory: Clear to Auscultation Cardiovascular: RRR Extremities: - - pain w/ flexion RT hip, no deformity Neurological: - - answers questions slowly Lines/Tubes/Other Access: Clean, Dry and Intact Peripheral IV Result Diagrams: 10/07/16 05:27 10/07/16 05:27 Additional Lab and Data: Assess/Plan/Problems-Billing Mr. Hernandez is a 60 yo male with end-stage alcoholic cirrhosis, on palliative care plan. - Patient Problems (1) Liver failure Current Visit: Yes Status: Acute Priority: High Comment: -Yesterday discussed case with Dr. Emery, there are no reasonable treatment options. -Will pursue palliative approach. -Since here a few more days will have palliative consult here. (2) Diarrhea due to drug Current Visit: Yes Status: Acute Priority: Low Code(s): K52.1 - TOXIC GASTROENTERITIS AND COLITIS SNOMED Code(s): 526530460 Comment: diarrhea improved since stopping lactulose Status and Disposition: Will remain in hospital until he moves to inpatient hospice at [facility]
[2016-10-09] MEDS: oxyCODONE TAB* 5 MG TAB PO PRN (11:40)
[2016-10-09] MEDS: cefTRIAXone VIAL(*) 1,000 MG in NS 0.9% 50 ML* 50 ML IVPB SCH (16:00)
[2016-10-10] MEDS: Heparin VIAL(*) 5000 UNITS/ML VIAL (FIVE THOUSAND) SUBCUT SCH ×2 (05:36→19:52)
[2016-10-10] MEDS: Folic Acid TAB* 1 MG PO SCH (07:54)
[2016-10-10] MEDS: Spironolactone TAB* 25 MG PO SCH (07:54)
[2016-10-10] MEDS: Furosemide TAB* 40 MG PO SCH (07:55)
[2016-10-10] MEDS: Lactulose* 15 ML UDC PO SCH ×3 (07:55→19:33)
[2016-10-10] MEDS: Sertraline* 50 MG TAB PO SCH (07:55)
[2016-10-10] MEDS: RiFAXimin* 550 MG TAB PO SCH ×2 (07:55→22:40)
[2016-10-10] MEDS: Morphine INJ* 2 MG/ML 1 ML CARPUJECT IV PRN ×2 (09:55→14:12)
--- NOTE | 2016-10-10 15:46 | PN ---
Subjective Date of Service: 10/10/16 Interval History: Patient seen and examined at bedside. Patient initially appeared to be sleeping but then opened his eyes when asked about pain and stated, "I could use more pain medicine." He reports pain to right hip and generalized. Does not endorse any other complaints. Poor PO intake. at bedside. connected with palliative care staff to further discuss discharge plan, hopefully to [facility]. Family History: Unchanged from Admission Social History: Unchanged from Admission Past Medical History: Unchanged from Admission Objective Active Medications: Folic Acid (Folvite Tab*) 1 mg PO DAILY [facility] Last Admin: 10/10/16 07:54 Dose: 1 mg Furosemide (Lasix Tab*) 40 mg PO DAILY [facility] Last Admin: 10/10/16 07:55 Dose: 40 mg Ceftriaxone Sodium 1,000 mg/ (Sodium Chloride) 50 mls @ 200 mls/hr IVPB Q24H [facility] Last Admin: 10/09/16 16:00 Dose: 200 mls/hr Lactulose (Lactulose*) 15 ml PO TID [facility] Last Admin: 10/10/16 14:17 Dose: Not Given Morphine Sulfate (Morphine Inj (Syringe)*) 2 mg IV Q2H PRN PRN Reason: PAIN Last Admin: 10/10/16 14:12 Dose: 2 mg Oxycodone HCl (Roxycodone Tab*) 5 mg PO Q6H PRN PRN Reason: PAIN Last Admin: 10/09/16 11:40 Dose: 5 mg Prochlorperazine Edisylate (Compazine Inj*) 5 mg IV Q6H PRN PRN Reason: NAUSEA/VOMITING Last Admin: 10/08/16 22:35 Dose: 5 mg Rifaximin (Xifaxan*) 550 mg PO BID [facility] Last Admin: 10/10/16 07:55 Dose: 550 mg Sertraline HCl (Zoloft*) 50 mg PO DAILY [facility] Last Admin: 10/10/16 07:55 Dose: 50 mg Spironolactone (Aldactone Tab*) 50 mg PO BID [facility] Last Admin: 10/10/16 07:54 Dose: 50 mg Vital Signs 10/09/16 10/09/16 10/09/16 15:52 20:17 23:38 Temperature 96.7 F 97.5 F Pulse Rate 70 68 Respiratory 16 6 18 Rate Blood Pressure 109/48 105/51 (mmHg) O2 Sat by Pulse 94 90 Oximetry 10/10/16 10/10/16 10/10/16 07:44 08:00 09:55 Temperature Pulse Rate 64 Respiratory 18 20 20 Rate Blood Pressure 91/44 (mmHg) O2 Sat by Pulse 96 Oximetry 10/10/16 10/10/16 10:55 14:12 Temperature Pulse Rate Respiratory 18 12 Rate Blood Pressure (mmHg) O2 Sat by Pulse Oximetry Oxygen Devices in Use Now: None Appearance: Chronically ill appearing, jaundiced male, lying in bed, in NAD. Limited assessment per patient request and desire for comfort care Eyes: - - icteric Ears/Nose/Mouth/Throat: Clear Oropharnyx Respiratory: Symmetrical Chest Expansion and Respiratory Effort, Clear to Auscultation Cardiovascular: RRR Lines/Tubes/Other Access: Clean, Dry and Intact Peripheral IV Result Diagrams: 10/07/16 05:27 10/07/16 05:27 Additional Lab and Data: Microbiology and Other Data: Microbiology 10/07/16 20:25 Stool Gross Appearance - Final Stool Stool Occult Blood (ERLINDA) - Final 10/07/16 18:00 Stool Occult Blood (ERLINDA) - Final Stool Assess/Plan/Problems-Billing Mr. Hernandez is a 60 yo male with end-stage alcoholic cirrhosis, on palliative care plan. - Patient Problems (1) Liver failure Current Visit: Yes Status: Acute Priority: High Comment: Case discussed with Dr. Emery, there are no reasonable treatment options. Palliative care consult planned for today. Discharge planning in process, with plan for [facility], if available. Continue lactulose TID, if patient willing. (2) Diarrhea due to drug Code(s): K52.1 - TOXIC GASTROENTERITIS AND COLITIS Comment: Diarrhea improved since stopping lactulose. Decreased from QID to TID, patient may refuse for comfort purposes. (3) DVT prophylaxis Code(s): GPQ0159 - Comment: SQ heparin (4) DNR (do not resuscitate) Status and Disposition: Inpatient admission. Will remain in hospital until he moves to inpatient hospice at [facility]
[2016-10-10] MEDS: cefTRIAXone VIAL(*) 1,000 MG in NS 0.9% 50 ML* 50 ML IVPB SCH (19:52)
--- NOTE | 2016-10-10 21:06 | CONS ---
PALLIATIVE CARE CONSULTATION NOTE: DATE OF CONSULT: 10/10/16 PRIMARY CARE PHYSICIAN: Dr. Barrios. REASON FOR CONSULT: Evaluation for palliative care and hospice eligibility. HISTORY OF PRESENT ILLNESS: This is a 60-year-old male with a past medical history of alcoholic liver cirrhosis diagnosed about a year and a half ago who presented to the emergency room on 10/03/16 with a fall in the setting of altered mental status. The patient on admission was noted to have advancing liver failure. He initially did not have any significant encephalopathy on admission but was noted to be with severe protein calorie malnutrition. On admission, his albumin was 1.8. He is presenting with decompensated liver failure with a MELD score of 30. He has been drinking alcohol up to about 2 months ago. It is unclear what the inciting event is to lead him to decompensation that required this hospitalization. There was a question of possible pneumonia. He does not appear to have SBP. They continued initially on his regimen with lactulose, rifaximin, Lasix and spironolactone and had GI evaluate him. The patient had an abdominal ultrasound done during his hospitalization that showed [id number] amount of ascites. Dr. Emery evaluated the patient on 10/06/16 who also pointed out that he has a history of esophageal varices and that he has end-stage alcoholic liver disease. He stated that transplant is not an option for him as he has only been sober for less than 2 months and circumstances not favorable for any other intervention that may improve his end-stage liver disease. The patient has progressively deteriorated becoming more lethargic and encephalopathic. His bilirubin has been significantly elevated at 25 and his INR is showing poor synthetic function of 2.63. On my encounter, the patient awakes fully, but falls asleep rather quickly. He denies any pain. His , Lucretia, is not at the bedside at this time. I did try to reach her, but was unable to get her on the phone. Unable to obtain any review of systems due to the patient's encephalopathy. PAST MEDICAL HISTORY: 1. End-stage alcoholic liver disease secondary to alcohol intake. 2. History of esophageal varices. 3. History of right hip replacement in 2007. 4. History of hernia repair. 5. History of depression. INPATIENT MEDICATIONS: 1. Folic acid 1 tab daily. 2. Lasix 40 mg daily. 3. Heparin 5000 units subcu t.i.d. 4. Lactulose 15 mL p.o. t.i.d. 5. Morphine 2 mg every 2 hours as needed. 6. Rifaximin 550 mg p.o. b.i.d. 7. Ceftriaxone 1 g every 24 hours. 8. Zoloft 50 mg daily. 9. Spironolactone 50 mg p.o. b.i.d. 10. Oxycodone 5 mg p.o. q.6 hours as needed. ALLERGIES: No known drug allergies. FAMILY HISTORY: Mother with hypertension and diabetes. MOLST form filled out by Dr. Spivey as a DNR. SOCIAL HISTORY: The patient as mentioned is a heavy alcohol user up until 2 months ago. No history of tobacco or illicit drug use. 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 His , Lucretia, is his healthcare proxy. REVIEW OF SYSTEMS: Unable to obtain. PHYSICAL EXAM: Vitals: Temp 97.5, pulse rate 68, respiratory rate 18, oxygen saturation 98% on room air, blood pressure 105/51. General: The patient is in no acute distress, somnolent, but awakes to voice, he is jaundiced. HEENT: Neck supple. Mucous membranes are dry. Pupils are equal and icteric. Cardiac : Systolic murmur heard throughout. Most prominent at the right sternal base. Regular rate and rhythm. Respiratory: Diminished breath sounds with rhonchi or rales. Abdomen: Soft, nontender, nondistended. Extremities: No clubbing, cyanosis, or edema. +1 DPs. Neurologic: The patient alerts to voice, unable to answer any questions other than he denies any pain and unable to follow any commands. DIAGNOSTIC STUDIES/LAB DATA: White count 13.8, hemoglobin 8.3, hematocrit 24, platelets 90, INR is 2.63. Sodium 122, potassium 3, chloride 91, bicarb 24, BUN 24, creatinine 1.21, total bilirubin is 26, AST is 70, ALT is 34, alk phos 135. Albumin is 1.9. ASSESSMENT: This is a 60-year-old male with a past medical history with end- stage alcoholic liver disease presents to the emergency room with a fall found to have progression of his end-stage liver disease. He has an INR of greater than 1.5 and albumin less than 2.4. His ascites appears to be refractory to treatment. He is encephalopathic. He has progressive malnutrition. He has not eaten for the past 2 days. This more than qualifies him to be eligible for hospice for terminal diagnosis of end-stage alcoholic liver disease as it stands. The family is interested in the [facility] in [place] or the hospice residence. We are waiting to hear back from both in terms of eligibility and availability. I will try to touch base with the again to follow up with her as I was unable to touch base with her earlier. Thank you for this consultation. I will follow along with you. ADDENDUM: I did speak with Lucretia and it seems that bringing him home with family may be too challenging. She is interested in [facility] as she lives in [place]. The have a bed available. The plan is for her to visit with the [facility] and determine if this is where she would like him to be. PATIENT TIME: Greater than 45 minutes were spent doing this consultation, more than half the time was spent in direct patient contact. CC: Tiki Kimble; Tiki Rhoades* [id number]/[facility] #: [id number] MTDD
[2016-10-11] MEDS: Morphine INJ* 2 MG/ML 1 ML CARPUJECT IV PRN (00:22)
[2016-10-11] MEDS: RiFAXimin* 550 MG TAB PO SCH ×2 (08:29→23:34)
[2016-10-11] MEDS: Lactulose* 15 ML UDC PO SCH ×3 (08:29→23:34)
[2016-10-11] MEDS: Sertraline* 50 MG TAB PO SCH (08:29)
[2016-10-11] MEDS: oxyCODONE TAB* 5 MG TAB PO PRN (09:16)
--- NOTE | 2016-10-11 10:34 | PN ---
Subjective Date of Service: 10/11/16 Interval History: Patient sleeping at time of my assessment. I did speak with his , Lucretia, who reports that the patient was having a significant amount of generalized pain earlier and had recently received oxycodone. She feels as if he is comfortable and reports that he did not express any other concerns. Mr. Hernandez has been offered a bed a [facility]; Lucretia and the patient are satisfied with this plan. No acute nursing concerns. Family History: Unchanged from Admission Social History: Unchanged from Admission Past Medical History: Unchanged from Admission Objective Active Medications: Lactulose (Lactulose*) 15 ml PO TID [facility] Last Admin: 10/11/16 08:29 Dose: Not Given Morphine Sulfate (Morphine Inj (Syringe)*) 2 mg IV Q2H PRN PRN Reason: PAIN Last Admin: 10/11/16 00:22 Dose: 2 mg Oxycodone HCl (Roxycodone Tab*) 5 mg PO Q6H PRN PRN Reason: PAIN Last Admin: 10/11/16 09:16 Dose: 5 mg Prochlorperazine Edisylate (Compazine Inj*) 5 mg IV Q6H PRN PRN Reason: NAUSEA/VOMITING Last Admin: 10/08/16 22:35 Dose: 5 mg Rifaximin (Xifaxan*) 550 mg PO BID [facility] Last Admin: 10/11/16 08:29 Dose: Not Given Sertraline HCl (Zoloft*) 50 mg PO DAILY [facility] Last Admin: 10/11/16 08:29 Dose: Not Given Vital Signs 10/10/16 10/10/16 10/10/16 10:55 14:12 15:12 Temperature Pulse Rate Respiratory 18 12 8 Rate Blood Pressure (mmHg) O2 Sat by Pulse Oximetry 10/10/16 10/10/16 10/10/16 15:25 19:34 23:48 Temperature 97.4 F 97.5 F Pulse Rate 69 64 Respiratory 16 8 16 Rate Blood Pressure 108/53 106/54 (mmHg) O2 Sat by Pulse 91 93 Oximetry 10/11/16 10/11/16 10/11/16 00:22 01:22 08:00 Temperature Pulse Rate Respiratory 6 6 6 Rate Blood Pressure (mmHg) O2 Sat by Pulse Oximetry 10/11/16 10/11/16 08:10 09:16 Temperature 97.7 F Pulse Rate 67 Respiratory 9 6 Rate Blood Pressure 143/101 (mmHg) O2 Sat by Pulse 92 Oximetry Oxygen Devices in Use Now: None Appearance: Chronically ill appearing, jaundiced male, lying in bed, sleeping. Limited examination, patient is comfort care, appears to be resting comfortably. Neck: NL Appearance and Movements; NL JVP Respiratory: Symmetrical Chest Expansion and Respiratory Effort, Clear to Auscultation Cardiovascular: RRR Extremities: No Edema Result Diagrams: 10/07/16 05:27 10/07/16 05:27 Additional Lab and Data: Microbiology and Other Data: Microbiology 10/07/16 20:25 Stool Gross Appearance - Final Stool Stool Occult Blood (ERLINDA) - Final 10/07/16 18:00 Stool Occult Blood (ERLINDA) - Final Stool Assess/Plan/Problems-Billing Mr. Hernandez is a 60 yo male with end-stage alcoholic cirrhosis, on palliative care plan. - Patient Problems (1) Comfort measures only status Code(s): Z51.5 - ENCOUNTER FOR PALLIATIVE CARE Comment: Plan for discharge to [facility] tomorrow and sign on with [facility] Initiate sanchez catheter (per [facility] policy) Medication list reviewed and IV medications switched to PO. Continue prn morphine, atropine, and lorazepam. (2) Liver failure Current Visit: Yes Status: Acute Priority: High Comment: Case discussed with Dr. Emery, there are no reasonable treatment options. Palliative care consult - patient is comfort care. Plan for d/c to [facility]. Continue lactulose TID, if patient willing. (3) Diarrhea due to drug Code(s): K52.1 - TOXIC GASTROENTERITIS AND COLITIS Comment: Diarrhea improved since stopping lactulose. Decreased from QID to TID, patient may refuse for comfort purposes. (4) DVT prophylaxis Code(s): [id number] - Comment: Contraindicated for end of life care (5) DNR (do not resuscitate) Status and Disposition: Inpatient admission. Will remain in hospital until he moves to inpatient hospice at [facility]
[2016-10-11] MEDS ORDERED: Atropine 1% (ORAL/SL)* 15 ML BTL SL PRN (10:59)
[2016-10-11] MEDS ORDERED: Ondansetron ODT TAB* 4 MG PO PRN (10:59)
[2016-10-11] MEDS ORDERED: LORazepam TAB(*) 0.5 MG SL PRN (10:59)
[2016-10-11] MEDS ORDERED: Acetaminophen TAB* 325 MG PO PRN (11:00)
[2016-10-11] MEDS ORDERED: Acetaminophen SUPP* 650 MG SUPP PR PRN (11:00)
[2016-10-11] MEDS ORDERED: Prochlorperazine SUPP* 25 MG SUPP PR PRN (11:01)
[2016-10-11] MEDS: Morphine ORAL CONCENTRATE* 5 MG/0.25 ML ORAL.SYRIN SL PRN (23:34)
[2016-10-12] MEDS: Morphine ORAL CONCENTRATE* 5 MG/0.25 ML ORAL.SYRIN SL PRN (05:59)
[2016-10-12 07:51] VITALS: BP 98/44
[2016-10-12] MEDS: RiFAXimin* 550 MG TAB PO SCH (08:56)
[2016-10-12] MEDS: Lactulose* 15 ML UDC PO SCH (09:00)
--- NOTE | 2016-10-12 09:33 | DS ---
MEDICINE DISCHARGE SUMMARY: DATE OF ADMISSION: 10/10/16 DATE OF DISCHARGE: 10/12/16 PROVIDER: Fahad Benitez NP PRIMARY CARE PHYSICIAN: Dr. Barrios. ATTENDING PHYSICIAN: Dr. Brayden Church *(as dictated by Fahad Benitez NP) CONSULTING PHYSICIAN: Dr. Amrita Snyder, Palliative Care. GASTROENTEROLOGY: Dr. Hawk Emery. PRIMARY DISCHARGE DIAGNOSIS: End-stage alcoholic liver disease secondary to alcohol intake. SECONDARY DISCHARGE DIAGNOSES: 1. History of esophageal varices. 2. History of right hip replacement. 3. History of hernia repair. 4. History of depression. MEDICATIONS AT DISCHARGE: 1. Rifaximin 550 mg b.i.d. 2. Compazine 25 mg per rectum q.12h. p.r.n. 3. Ondansetron ODT 4 mg q.6h. p.r.n. 4. Morphine oral concentrate 5 mg sublingual q.2hours p.r.n. 5. Lactulose 15 mL t.i.d. 6. Lorazepam 0.5 mg sublingual q.4h. p.r.n. 7. Atropine 1% drops, two drops sublingual q.2h. p.r.n. 8. Tylenol 650 mg p.o. or per rectum q.4h. p.r.n. HOSPITAL COURSE OF STAY: For full details, please refer to the full medical record. In summary, Mr. Hernandez is a 60-year-old gentleman with a past medical history of alcoholic liver cirrhosis that was diagnosed approximately a year and a half ago who presented to emergency room on 10/03/16. The patient presented with a fall in the setting of altered mental status. He was noted to have progressive liver failure as well as severe protein/calorie malnutrition. The inciting event that led to his progression is unclear. However, the patient was admitted and started on ceftriaxone with concern for pneumonia. He was continued on his home medication regimen of lactulose, rifaximin, Lasix, and spironolactone, and a Gastroenterology consult on 10/06/[address] Emery. It was felt by Dr. Emery that the patient's liver failure is pronounced and that he has a very poor prognosis. Transplantation is not an option for this patient with less than two months of sobriety. It was also felt that the patient would not have any benefit from prednisone or other intervention. After discussion with the family, it was felt that the patient would benefit from a palliative care consult. He has continued to progressively deteriorate, becoming more lethargic, encephalopathic during this admission. He has declined lactulose on multiple occasions as the diarrhea is distressing to him. Based on his condition and diagnosis of end stage liver disease, his protein/ calorie malnutrition and his encephalopathy, the patient qualifies for hospice for the terminal diagnosis of end stage alcoholic liver disease. The family expressed interest in the [facility] or another hospice residence. A bed was obtained at [facility]. We have amended the patient's medication regimen for comfort, and discontinued most of his medications with the exception of his Rifaximin and lactulose which he's kept on with the option for the patient to refuse. We did explain to the patient and his family that if he continues to refuse the medications he will become progressively more lethargic and obtunded. They are aware of this. The patient has been tolerating morphine oral concentrate. Per the guidelines of the [facility], the patient has had a Gallardo catheter inserted here in the hospital. His pain is controlled with the current medication regimen. The patient will sign on with [facility] on 10/12/16 upon transfer to [facility]. CONCERNS AT DISCHARGE: Mr. Hernandez will be discharged to [facility] on 10/12/16, and will with [facility]. CONDITION: Guarded. DIET: Comfort care diet. ACTIVITY: As tolerated for comfort. DISPOSITION: To [facility] with hospice. TIME SPENT: Time spent on this discharge was approximately 45 minutes. Again, this is only a brief summary of patient's hospital course and stay. For full details, please refer to the full medical record. If you have any further questions or need further assistance, please feel free to contact me at [phone]. FAHAD BENITEZ NP CC: Dr. Barrios* [id number]/[facility] #: [id number] DEBBIE
--- NOTE | 2016-10-12 10:32 | PN ---
Progress Note - Progress Note Note: Palliative Care follow up note - patient comfortable, getting ready to be transported to [facility] in [place]. , Lucretia, visited the home and was very pleased with it. Patient transferred to [facility], hospice, terminal diagnosis: End Stage alcoholic liver disease.
--- NOTE | 2016-10-12 15:50 | PN ---
Hospitalist Progress Note Reviewed discharge plan with case management team. Patient is being transferred to [facility] for Hospice care. All Rx's sent to [facility] in [place]. Please see detailed discharge summary from Sera Johnson NP dated .
== END 2016-10-12 10:00 | disposition hospice, inpatient (51) | DRG 280 ==
LOC: ED 12:51 → MED 15:25 → OBSVTOIN 10-04 15:00
PROVIDERS: ADMIT Internal Medicine; ATTEND Internal Medicine
DX: K70.40 Alcoholic hepatic failure without coma (principal); J18.9 Pneumonia, unspecified organism; K70.31 Alcoholic cirrhosis of liver with ascites; E43 Unspecified severe protein-calorie malnutrition; K52.1 Toxic gastroenteritis and colitis; I85.10 Secondary esophageal varices without bleeding; E87.1 Hypo-osmolality and hyponatremia; F10.20 Alcohol dependence, uncomplicated; W18.30XA Fall on same level, unspecified, initial encounter; Y93.01 Activity, walking, marching and hiking; Y92.008 Other place in unspecified non-institutional (private) residence as the place of occurrence of the external cause; R55 Syncope and collapse; D53.9 Nutritional anemia, unspecified; E87.6 Hypokalemia; Z66 Do not resuscitate; Z96.641 Presence of right artificial hip joint; Z82.49 Family history of ischemic heart disease and other diseases of the circulatory system; Z83.3 Family history of diabetes mellitus; Z68.23 Body mass index [BMI] 23.0-23.9, adult; Z79.899 Other long term (current) drug therapy; Z79.1 Long term (current) use of non-steroidal anti-inflammatories (NSAID)
CPT/HCPCS: 36415; 71010; 76705; 80048; 80053; 80076; 80329; 81003; 82140; 82272; 82550; 82553; 82607; 82728; 82746; 83540; 83550; 83605; 83690; 83735; 83880; 83930; 83935; 84134; 84300; 84443; 84484; 85025; 85027; 85610; 85730; 86140; 93005; 93306; 99284; A9270-GY; G0378; G0480; J0456; J0696; J0780; J1644; J2270; J3480